=== PATIENT | male | born 1955 | race Caucasian/White ===

== ENCOUNTER 2018-12-01 18:26 | Emergency (ER) | payer OTHER ==
[2018-12-01] MEDS ORDERED: KETOROLAC TROMETHAMINE 60 MG/2 ML SDV IM ONE (19:55)
[2018-12-01] MEDS ORDERED: LIDOCAINE 5% (700 MG) TRANSDERMAL ADH..PATCH TP ONE (19:55)
[2018-12-01] MEDS ORDERED: DEXAMETHASONE SOD PHOS INJ 10 MG/1 ML VIAL IM ONE (19:55)
--- NOTE | 2018-12-01 19:59 | ER Document Report ---
HPI - HPI Time Seen by Provider: 12/01/18 19:47 Pain Level: 2 Context: Patient is a 63-year-old male who presents to the emergency department with left hip and leg pain. He states that the pain started 3 days ago. He was working through the pain and today he was doing yard work and fell on his left hip. Patient states that since then he has not only been able to walk very well. He is not taking any medication to help with the pain. He has a past medical history of GERD and is currently on omeprazole. He takes an aspirin every day and a multivitamin. - CONSTITUTIONAL Constitutional: DENIES: Fever, Chills - EENT EENT: DENIES: Sore Throat, Ear Pain - NEURO Neurology: DENIES: Headache - CARDIOVASCULAR Cardiovascular: DENIES: Chest pain - RESPIRATORY Respiratory: DENIES: Coughing - GASTROINTESTINAL Gastrointestinal: DENIES: Abdominal Pain - MUSCULOSKELETAL Musculoskeletal: REPORTS: Extremity pain - Left hip, Back Pain - Lower left - DERM Skin Color: Normal Skin Problems: None Past Medical History - Social History Smoking Status: Unknown if Ever Smoked Family History: Reviewed & Not Pertinent Vertical Provider Document - CONSTITUTIONAL Agree With Documented VS: Yes Exam Limitations: No Limitations General Appearance: No Apparent Distress - HEENT HEENT: Atraumatic, Normocephalic, PERRLA - NECK Neck: Normal Inspection - RESPIRATORY Respiratory: Breath Sounds Normal, No Respiratory Distress - CARDIOVASCULAR Cardiovascular: Regular Rate, Regular Rhythm Pulses: Normal: Radial, Posterior tibial, Dorsalis pedis - MUSCULOSKELETAL/EXTREMETIES Musculoskeletal/Extremeties: Tender - Left buttock, left thigh, left lower back, No Edema. negative: FROM - Decreased range of motion on the left lower extremity due to pain - NEURO Level of Consciousness: Awake, Alert, Appropriate - DERM Integumentary: Warm, Dry, No Rash Course - Re-evaluation Re-evalutation: 12/01/18 19:59 Differential diagnosis for back pain includes muscle spasm, muscle strain, slipped disc cauda equina syndrome, vertebral fracture, vertebral tumor, epidural abscess, pyelonephritis, or AAA. Based on history and exam, the most likely etiology of the patient's back and b uttock pain is sciatic nerve pain. Emergent MRI is not indicated at this time because the patient does not have new weakness, or cauda equina syndrome. Patient does not have bladder or bowel dysfunction. Patient does not have history of IV drug use, therefore, I do not suspect an epidural abscess. Patient does not have recent weight loss or night sweats, and does not have a known history of cancer. Patient will receive a dose of Decadron and Toradol here in the emergency department. He will also receive a lidocaine patch. 12/01/18 21:14 I reassessed the patient and he states he feels tremendously better. He is able to move his leg and up with no difficulty. He is able to make it straight, whereas he was not able to extend his leg straight before. Awaiting official read of the x-rays. 12/01/18 21:30 The official read of the patient's x-ray shows some osteophytes. No acute fractures at this time. [facility]. I have also given him lidocaine patches to go home with. Crutches were provided. Follow-up precautions were given. Verbal discharge instructions were given to the patient. They verbalized understanding. They are stable for discharge. - Vital Signs Vital signs: Temp Pulse Resp BP Pulse Ox 97.6 F 59 L 20 131/68 H 95 12/01/18 18:43 12/01/18 18:43 12/01/18 18:43 12/01/18 18:43 12/01/18 18:43 Procedures - Immobilization Left Hip Pre-Proc Neuro Vasc Exam: Normal Immobilizer type: Crutches Performed by: JE Post-Proc Neuro Vasc Exam: Normal, Unchanged from pre-exam Alignment checked and good: Yes Discharge - Discharge Clinical Impression: Left sciatic nerve pain Condition: Stable Disposition: HOME, SELF-CARE Additional Instructions: You were seen today in the emergency department for back pain. Your back pain is most consistent with sciatic nerve pain. You were treated with Toradol, medication for pain and Decadron, steroid. You have been prescribed lidocaine patches, or if you cannot afford the patches, you may also buy [id number] Aspercreme with lidocaine and apply to the area per box instructions. If you develop a fever greater than 100.4 F, lose bowel or bladder function, are unable to walk, or have any symptoms that are worrisome to you, please return to the emergency department.. Prescriptions: Lidocaine [Lidoderm 5% (700 mg) Transdermal Patch] 1 patch TP DAILY PRN #[id number] adh..patch PRN Reason: Referrals: [facility] [Provider Group] - Follow up in 3-5 days
[2018-12-01] MEDS ORDERED: ONDANSETRON 4 MG TAB.RAPDIS PO ONE (20:00)
--- NOTE | 2018-12-01 21:21 | RADIOLOGY REPORT (SQ) ---
EXAM DESCRIPTION: XR HIP 2 OR MORE VIEWS COMPLETED DATE/TME: 12/01/2018 19:55 CLINICAL HISTORY: 63 years, Male, fall; left hip pain COMPARISON: None. FINDINGS: Single view of the pelvis and 2 views of the left hip. Prior hernia repair identified. Normal osseous mineralization. No acute fracture or dislocation. Mild bilateral hip joint space narrowing and marginal osteophytosis.. IMPRESSION: 1. No acute fracture or dislocation. copyright 2010 [employer]- All Rights Reserved
[2018-12-01 21:32] VITALS: BP 136/67
== END 2018-12-01 21:30 | disposition home or self-care (01) ==
LOC: ER 18:26
DX: M54.42 Lumbago with sciatica, left side (principal); M25.752 Osteophyte, left hip; M25.751 Osteophyte, right hip; K21.9 Gastro-esophageal reflux disease without esophagitis; Z79.899 Other long term (current) drug therapy; Z79.82 Long term (current) use of aspirin
CPT/HCPCS: 99283; 96372; 73502; J1885; S0119; J1100